=== PATIENT | female | born 1965 | race Caucasian/White ===

== ENCOUNTER 2022-09-23 21:00 | Emergency (ER) | payer MEDICAID, OTHER ==
[~2022-09-23] VITALS: Ht 157.5 cm; Wt 86.2 kg
[2022-09-23] MEDS ORDERED: predniSONE 20 MG TABLET ONE ×2 (22:07→22:21)
[2022-09-23] MEDS: predniSONE 20 MG TABLET PO ONE ×2 (22:07→22:26)
[2022-09-23] MEDS: FAMOTIDINE 20 MG TABLET PO ONE ×2 (22:07→22:26)
[2022-09-23] MEDS ORDERED: FAMOTIDINE 20 MG TABLET ONE (22:07)
[2022-09-23] MEDS ORDERED: PRED20TA PO (22:19)
[2022-09-23 22:48] VITALS: BP 142/60
== END 2022-09-23 22:51 | disposition home or self-care (01) ==
LOC: ER 21:00
DX: L27.0 Generalized skin eruption due to drugs and medicaments taken internally (principal); T50.905A Adverse effect of unspecified drugs, medicaments and biological substances, initial encounter; Y92.89 Other specified places as the place of occurrence of the external cause; E78.00 Pure hypercholesterolemia, unspecified; Z59.01 Sheltered homelessness
CPT/HCPCS: 99283; J7512 ×2; A4663